=== PATIENT | male | born 1955 | race African-American/Black ===

== ENCOUNTER 2017-08-14 00:22 | Emergency (ER) | payer MEDICAID ==
[~2017-08-14] VITALS: Ht 190.5 cm; Wt 75.0 kg
[2017-08-14] MEDS ORDERED: METHYLPREDNISOLONE SOD SUCC 125 MG/2 ML VIAL IV STA (01:13)
[2017-08-14] MEDS ORDERED: LEVOFLOXACIN 750MG PREMIX 150 ML IV STA (01:13)
[2017-08-14] MEDS ORDERED: MAGNESIUM 2 G PREMIX 50 ML IV ONE (01:15)
[2017-08-14] MEDS ORDERED: LABETALOL HCL 20MG/4ML CARPUJECT IV ONE (01:15)
[2017-08-14] MEDS ORDERED: NITROGLYCERIN OINT 1GM/INCH UDPKT TD ONE (01:15)
[2017-08-14] MEDS ORDERED: ASPIRIN 81MG TABLET PO ONE (01:15)
[2017-08-14] MEDS ORDERED: ALBUTEROL (0.083%) 2.5MG/3ML NEB HHN SCH (01:30)
[2017-08-14 01:51] LABS: BASOPHILS % 0.7 % (0.0-2.0); EOSINOPHILS % 7.9 % (0.0-5.0); HEMATOCRIT. 45.4 % (42.0-52.0); HEMOGLOBIN. 15.5 g/dL (14.0-18.0); LYMPHOCYTES % 18.7 % (20.0-50.0); MEAN CORPUSCULAR HEMOGLOBIN 34.8 pg (28.0-32.0); MEAN CORPUSCULAR VOLUME 102.2 fL (80.0-94.0); MEAN PLATELET VOLUME 7.7 fl (7.4-10.4); MONOCYTES % 10.5 % (2.0-8.0); NEUTROPHILS % 62.2 % (40.0-76.0); PLATELET 200 x1000/uL (130-400); RED BLOOD CELL COUNT 4.44 mill/uL (4.7-6.1); RED CELL DISTRIBUTION WIDTH 13.7 % (11.6-14.6)
[2017-08-14 02:09] LABS: CARBON DIOXIDE 24 mEq/L (21-32); CHLORIDE 100 mEq/L (98-107); ETHANOL BLOOD < 10 mg/dL; TROPONIN I < 0.02 ng/mL (0.00-0.04)
[2017-08-14 02:42] LABS: BG BASE EXCESS -2.2 mmol/L (-2.0-2.0); BG CARBOXYHEMOGLOBIN 0.2 % (0.5-1.5); BG DEOXYHEMOGLOBIN 2.2 % (0.0-5.0); BG FRACTION INSPIRED OXYGEN 21; BG HCO3 ACT 20.6 mmol/L (22.0-26.0); BG METHEMOGLOBIN 0.1 % (0.0-1.5); BG OXYGEN SATURATION 97.8 % (92.0-98.5); BG OXYHEMOGLOBIN 97.5 % (94.0-97.0); BG PCO2 30.2 mmHg (35.0-45.0); BG PH 7.452 (7.350-7.450); BG PO2 103.1 mmHg (75.0-100.0); BG SAMPLE SITE LEFT RADIAL; BG TOTAL HEMOGLOBIN 14.3 g/dL (12.0-18.0); BG VENT MODE ROOM AIR
[2017-08-14] MEDS: LEVOFLOXACIN 750MG PREMIX 150 ML IV SCH ×2 (04:32→06:13)
[2017-08-14 06:59] VITALS: BP 130/82
== END 2017-08-14 07:47 | disposition home or self-care (01) ==
LOC: ER 00:22
DX: J44.1 Chronic obstructive pulmonary disease with (acute) exacerbation (principal); R74.0 Nonspecific elevation of levels of transaminase and lactic acid dehydrogenase [LDH]; I16.0 Hypertensive urgency
CPT/HCPCS: 36415; 36600; 71045; 80053; 82375; 82805; 83605; 83880; 84484; 85025; 87040; 87804; 93005; 94640; 96365; 96366; 96375; 99285; G0482; J1956; J2930; J3475; J3490; J7060; J7611

== ENCOUNTER 2017-08-22 10:35 | Emergency (ER) | payer MEDICAID ==
[~2017-08-22] VITALS: Ht 190.5 cm; Wt 75.0 kg
[2017-08-22 10:58] VITALS: BP 125/79
== END 2017-08-22 12:01 | disposition home or self-care (01) ==
LOC: ER 11:55
DX: J44.9 Chronic obstructive pulmonary disease, unspecified (principal); Z87.891 Personal history of nicotine dependence
CPT/HCPCS: 99281

== ENCOUNTER 2018-06-01 12:58 | Emergency (ER) | payer MEDICAID ==
[~2018-06-01] VITALS: Ht 190.5 cm; Wt 77.2 kg
[2018-06-01] MEDS ORDERED: PREDNISONE 20MG TABLET PO ONE ×2 (13:30→15:00)
[2018-06-01] MEDS ORDERED: IPRATROPIUM/ALBUTEROL 0.5-3(2.5)MG/3ML NEB HHN ONE (13:30)
[2018-06-01 13:47] LABS: HEMATOCRIT. 45.4 % (42.0-52.0); HEMOGLOBIN. 15.5 g/dL (14.0-18.0); MEAN CORPUSCULAR HEMOGLOBIN 34.8 pg (28.0-32.0); MEAN CORPUSCULAR VOLUME 102.1 fL (80.0-94.0); MEAN PLATELET VOLUME 8.2 fl (7.4-10.4); PLATELET 220 x1000/uL (130-400); RED BLOOD CELL COUNT 4.45 mill/uL (4.7-6.1)
[2018-06-01 13:53] LABS: CHLORIDE 105 mEq/L (98-107)
[2018-06-01 13:55] LABS: D-DIMER 0.2 mg/L FEU (<0.50); PARTIAL THROMBOPLASTIN TIME 27.2 sec (23.4-31.0)
[2018-06-01 14:36] LABS: PLATELET ESTIMATE NORMAL
[2018-06-01] MEDS ORDERED: ALBUTEROL (0.083%) 2.5MG/3ML NEB HHN STA (14:53)
[2018-06-01 15:04] VITALS: BP 140/86
== END 2018-06-01 15:38 | disposition home or self-care (01) ==
LOC: ER 12:58
DX: J44.1 Chronic obstructive pulmonary disease with (acute) exacerbation (principal); Z87.891 Personal history of nicotine dependence
CPT/HCPCS: 36415; 71045; 80053; 83880; 84484; 85025; 85379; 85610; 85730; 93005; 94640; 99285; J7512; J7611; J7620

== ENCOUNTER 2020-06-01 08:17 | Emergency (ER) | payer MEDICAID, MEDICARE ==
[~2020-06-01] VITALS: Ht 190.5 cm; Wt 77.0 kg
[2020-06-01 08:19] VITALS: BP 159/82
[2020-06-01] MEDS ORDERED: ALBUTEROL (0.083%) 2.5MG/3ML NEB HHN STA (08:43)
[2020-06-01] MEDS ORDERED: PREDNISONE 20MG TABLET PO STA (08:43)
[2020-06-01] MEDS ORDERED: IPRATROPIUM BROMIDE (0.02%) 0.5MG/2.5ML NEB HHN STA (08:43)
== END 2020-06-01 10:01 | disposition home or self-care (01) ==
LOC: ER 08:17
DX: J45.901 Unspecified asthma with (acute) exacerbation (principal)
CPT/HCPCS: 71045; 94640; 99283; J7512

== ENCOUNTER 2024-03-23 03:31 | Emergency (ER) | payer MEDICARE, OTHER ==
[~2024-03-23] VITALS: Ht 190.5 cm; Wt 78.0 kg
[2024-03-23 03:49] VITALS: O2SAT 97
[2024-03-23 04:40] LABS: HEMATOCRIT. 49.3 % (42.0-52.0); HEMOGLOBIN. 16.7 g/dL (14.0-18.0); MEAN CORPUSCULAR HEMOGLOBIN 33.6 pg (28.0-32.0); MEAN CORPUSCULAR HGB CONC 33.8 g/dL (31.0-37.0); MEAN CORPUSCULAR VOLUME 99.3 fL (80.0-94.0); MEAN PLATELET VOLUME 7.5 fl (7.4-10.4); PLATELET 241 x1000/uL (130-400); RED BLOOD CELL COUNT 4.97 mill/uL (4.7-6.1); RED CELL DISTRIBUTION WIDTH 13.1 % (11.6-14.6); WHITE BLOOD COUNT 7.7 x1000/uL (4.5-11.0)
[2024-03-23] MEDS ORDERED: ALBU6.7H15 INH (04:40)
[2024-03-23] MEDS ORDERED: PRED10TA MT (04:40)
[2024-03-23 04:53] LABS: TROPONIN I HIGH SENSITIVITY 5 ng/L (3.0-53)
[2024-03-23 04:59] LABS: DIFFERENTIAL COMMENT 1
[2024-03-23 05:02] LABS: CHLORIDE 105 mEq/L (98-107); POTASSIUM 3.8 mEq/L (3.5-5.1); SODIUM 137 mEq/L (136-145)
[2024-03-23 05:03] LABS: CALCIUM 9.7 mg/dL (8.7-10.4); CARBON DIOXIDE 21 mEq/L (21-32)
[2024-03-23 05:08] LABS: CREATININE 1.1 mg/dL (0.6-1.3); GLUCOSE 99 mg/dL (70-105); UREA NITROGEN BLOOD 13 mg/dL (9-23)
[2024-03-23 05:36] VITALS: BP 99/69; PULSE 99; RESP 20; TEMP 97.8; O2SAT 64
[2024-03-23 05:41] LABS: PLATELET ESTIMATE NORMAL
== END 2024-03-23 05:38 | disposition home or self-care (01) ==
LOC: ER 03:31
DX: J44.1 Chronic obstructive pulmonary disease with (acute) exacerbation (principal)
CPT/HCPCS: 36415; 71045; 80048; 83880; 84484; 85025; 99284